=== PATIENT | male | born 1985 | race Caucasian/White ===

== ENCOUNTER 2019-10-16 09:46 | Emergency (ER) | payer OTHER ==
[~2019-10-16] VITALS: Ht 172.7 cm; Wt 65.9 kg
[2019-10-16 09:53] VITALS: Ht 172.7 cm; Wt 65.9 kg
[2019-10-16 10:33] LABS: BASOPHILS 0.3 % (0-2); CALC OSMOLALITY 272 mosm/kg (275-300); CALCIUM 9.6 mg/dL (8.5-10.1); CARBON DIOXIDE 24.7 mmol/L (21.0-32.0); CHLORIDE - SERUM 101 mmol/L (98-107); CREATININE - SERUM 0.8 mg/dL (0.6-1.3); EOSINOPHILS 1.2 % (0-7); GLUCOSE 97 mg/dL (74-106); HEMATOCRIT 46.8 % (42.0-54.0); IMMATURE GRANULOCYTES 0.2 % (0-5); LYMPHOCYTES 17.6 % (15-50); MCHC 34.2 g/dL (31.0-37.0); MCV 99.6 fL (80.0-100.0); MEAN PLATELET VOLUME 10.5 fL (7.4-10.4); MONOCYTES 10.1 % (2-11); NEUTROPHILS 70.6 % (40-80); PLATELET COUNT 224 10x3/uL (130-400); POTASSIUM - SERUM 3.8 mmol/L (3.5-5.1); RDW 13.1 % (11.5-14.5); SODIUM 137 mmol/L (136-145); UREA NITROGEN 9 mg/dL (7-18); WBC 11.3 10x3/uL (4.8-10.8); eGFR NON AFRICAN AMERICAN > 90 mL/min (90-120)
[2019-10-16 10:39] LABS: ALBUMIN 3.9 g/dL (3.4-5.0); ALKALINE PHOSPHATASE 92 U/L (30-120); ALT (SGPT) 43 U/L (10-68); BILIRUBIN - TOTAL 1.99 mg/dL (0.2-1.3)
[2019-10-16] MEDS ORDERED: CLEOCIN HCL300 MG PO (11:17)
[2019-10-16] MEDS ORDERED: TYLENOL W/CODEI1 TAB PO (11:17)
[2019-10-16 11:41] VITALS: BP 115/70
== END 2019-10-16 11:42 | disposition home or self-care (01) ==
LOC: D.ER 09:46
PROVIDERS: Family Medicine
DX: K04.7 Periapical abscess without sinus (principal); K02.9 Dental caries, unspecified